=== PATIENT | male | born 1995 | race African-American/Black ===

== ENCOUNTER 2024-02-03 21:30 | Emergency (ER) | payer OTHER ==
[~2024-02-03] VITALS: Ht 175.3 cm; Wt 83.9 kg
[2024-02-03 21:45] VITALS: BP 144/73; PULSE 90; RESP 14; TEMP 206.8; TEMP 97.1; O2SAT 99
== END 2024-02-03 23:00 | disposition left against medical advice (07) ==
LOC: MED 21:30
DX: Z02.89 Encounter for other administrative examinations (principal)
CPT/HCPCS: 99283